=== PATIENT | male | born 1980 | race Caucasian/White ===

== ENCOUNTER 2021-01-20 07:34 | Emergency (ER) | payer BC ==
[2021-01-20 07:40] VITALS: BP 140/82; PULSE 69; RESP 18; TEMP 98.2
[2021-01-20] MEDS ORDERED: KETOROLAC 15 MG/ML 1 ML VIAL IVP STA ×2 (08:10→09:39)
[2021-01-20] MEDS ORDERED: SODIUM CHLORIDE 0.9% 1,000 ML IV STA (08:10)
[2021-01-20] MEDS ORDERED: ONDANSETRON 4 MG/2 ML VIAL IVP STA (08:10)
[2021-01-20 08:31] LABS: Basophils % (A) 0 %; Eosinophils % (A) 1 %; HCT 45.5 % (39.0-53.0); HGB 15.7 gm/dL (13.0-17.5); Lymphocytes % (A) 36 %; MCH 31.1 pg (25.0-35.0); MCHC 34.6 g/dL (31.0-37.0); MCV 90.1 fL (80.0-100.0); Mean Platelet Volume 7.2; Monocytes # (A) 0.2 k/uL (0-1.0); Monocytes % (A) 4 %; Neutrophils # (A) 3.1 k/uL (1.3-7.7); Neutrophils % (A) 57 %; Platelet Count 219 k/uL (150-450); RBC 5.05 m/uL (4.30-5.90); RDW 12.2 % (11.5-15.5); WBC 5.4 k/uL (3.8-10.6)
[2021-01-20 08:41] LABS: Amorphous Sediment,Urine Rare /hpf; Appearance,Urine Cloudy (Clear); Bacteria,Urine Rare /hpf; Bilirubin,Urine Negative (Negative); Blood,Urine Negative (Negative); Color,Urine Yellow; Glucose,Urine (UA) Negative (Negative); Ketones,Urine 3+ (Negative); Leukocyte Esterase,Urine Negative (Negative); Mucus,Urine Rare /hpf; Nitrite,Urine Negative (Negative); Protein,Urine Trace (Negative); RBC,Urine 1 /hpf (0-5); Specific Gravity,Urine 1.023 (1.001-1.035); Urobilinogen,Urine <2.0 mg/dL (<2.0)
[2021-01-20 08:45] LABS: ALT 33 U/L (4-49); AST 30 U/L (17-59); African American GFR (CKD) >90 (>60 ml/min/1.73 sqM); Albumin 4.8 g/dL (3.5-5.0); Alkaline Phosphatase 50 U/L (38-126); Anion Gap 12 mmol/L; Blood Urea Nitrogen 22 mg/dL (9-20); Calcium 9.9 mg/dL (8.4-10.2); Carbon Dioxide 24 mmol/L (22-30); Chloride 106 mmol/L (98-107); Glucose 154 mg/dL (74-99); Lipase 89 U/L (23-300); Non-African American GFR(CKD) >90 (>60 ml/min/1.73 sqM); Potassium 3.7 mmol/L (3.5-5.1); Sodium 142 mmol/L (137-145); Total Bilirubin 1.1 mg/dL (0.2-1.3); Total Protein 7.2 g/dL (6.3-8.2)
--- NOTE | 2021-01-20 09:08 | CT ---
EXAMINATION TYPE: CT abdomen pelvis wo con DATE OF EXAM: 01/20/2021 COMPARISON: None HISTORY: 40-year-old male left flank pain, history of prior stones CT DLP: 432.1 mGycm. Automated exposure control for dose reduction was used. TECHNIQUE: Contiguous axial scanning of the abdomen and pelvis without IV contrast. Coronal and sagit rishi reconstructions performed. FINDINGS: Heart normal size without pericardial effusion. Lung bases clear without pleural effusion. Noncontrast appearance of the liver, gallbladder, adrenal glands, spleen, and pancreas show no gross abnormality by noncontrast CT. A couple punctate 3 mm nonobstructive right renal calculi. There is a 1.2 cm cortical hypodensity pos terior mid to lower pole right kidney which is indeterminate. Renal ultrasound can be performed to en sure that this represents a benign cyst. Mild left-sided hydronephrosis with a 4 mm distal left ureteral calculus. No dilated small bowel, free fluid, or free air. No definite mesenteric or retroperitoneal lymphadeno abelardo. Some circumferential wall thickening along the transverse colon could be due to nondistention. Modera te stool in the right side of the colon. Normal appendix. No pericolonic inflammatory change. Bladder nondistended. Prostate gland mildly enlarged at 4.2 cm wide. No abnormal fluid collection in the pelvis or pelvic lymphadenopathy. Bones: Moderate degenerative change at the hips. Mild of the SI joints. Bilateral L5 hemisacralizatio n. IMPRESSION: 1. A 4 mm distal left ureteral calculus with mild obstructive uropathy. 2. A couple nonobstructing 3 mm right renal calculi. 3. Indeterminate 1.2 cm cortical lesion posterior right kidney. A mildly complicated cyst or small m ass are both possibilities. Nonemergent follow-up renal ultrasound to better characterize recommended . 4. Mild circumferential wall thickening transverse colon could be due to nondistention or nonspecif ic mild colitis. Clinically correlate. 5. Moderate degenerative change of both hips.
--- NOTE | 2021-01-20 09:43 | ED ---
Abdominal Pain HPI - General Chief Complaint: Abdominal Pain Stated Complaint: Abd Pain/Vomiting Time Seen by Provider: 01/20/21 07:52 Source: patient Mode of arrival: ambulatory - History of Present Illness Initial Comments: Patient is a 40-year-old male presenting to emergency Department with complaints of left-sided flank pain with radiation towards "worn that started suddenly this morning. Patient does report some nausea and vomiting as well. He states he does have a history of kidney stones, last one was about 3-4 years ago, this does feel familiar. He denies any fevers or chills, no hematuria that he is aware of. He denies any abdominal surgeries. He denies any chest pain or shortness of breath. He has no further complaints at this time. - Related Data Home Medications Medication Instructions Recorded Confirmed Ibuprofen [Motrin Ib] 200 mg PO Q8H PRN 01/20/21 01/20/21 Previous Rx's Medication Instructions Recorded Ketorolac [Toradol] 10 mg PO Q8HR #10 tab 01/20/21 Ondansetron Odt [Zofran Odt] 4 mg PO Q8HR PRN #10 tab 01/20/21 Tamsulosin [Flomax] 0.4 mg PO DAILY #7 cap 01/20/21 Allergies Allergy/AdvReac Type Severity Reaction Status Date / Time No Known Allergies Allergy Verified 01/20/21 09:34 Review of Systems ROS Statement: Those systems with pertinent positive or pertinent negative responses have been documented in the HPI. ROS Other: All systems not noted in ROS Statement are negative. Past Medical History Past Medical History: No Reported History History of Any Multi-Drug Resistant Organisms: None Reported Past Surgical History: Hernia Repair Past Psychological History: No Psychological Hx Reported Smoking Status: Never smoker Past Alcohol Use History: None Reported Past Drug Use History: None Reported General Exam - General Exam Comments Initial Comments: GENERAL: Patient is well-developed and well-nourished. Patient is nontoxic and in moderate distress, standing pacing the room. HEAD: Atraumatic, normocephalic. EYES: Pupils equal round and reactive to light, extraocular movements intact, sclera anicteric, conjunctiva are normal. Eyelids were unremarkable. ENT: TMs normal, nares patent, oropharynx clear without exudates. Moist mucous membranes. NECK: Normal range of motion, supple without lymphadenopathy or JVD. LUNGS: Unlabored respirations. Breath sounds clear to auscultation bilaterally and equal. No wheezes rales or rhonchi. HEART: Regular rate and rhythm without murmurs, rubs or gallops. ABDOMEN: Soft, mild left flank pain, left side of the abdomen normoactive bowel sounds. No guarding, no rebound. No masses appreciated. : Deferred MUSCULOSKELETAL: Normal extremities with adequate strength and normal range of motion, no pitting or edema. No clubbing or cyanosis. NEUROLOGICAL: Patient is alert and oriented x 3. Motor and sensory are also intact. Cranial nerves II through XII grossly intact. Symmetrical smile. Normal speech, normal gait. PSYCH: Normal mood, normal affect. SKIN: Warm, Dry, normal turgor, no rashes or lesions noted. Course Vital Signs 01/20/21 07:37 Temperature 98.2 F Pulse Rate 69 Respiratory 18 Rate Blood Pressure 140/82 O2 Sat by Pulse 100 Oximetry Medical Decision Making - Medical Decision Making She is a 40-year-old male here with left flank pain, nausea and vomiting started suddenly this morning. Patient is in moderate distress, pacing around the room. His vitals are stable. Lab show normal white count, no other acute findings, urine does show 3+ ketones. CT the abdomen shows a 4 mm distal left ureteral calculus with mild obstructive, there is a few couple nonobstructing right renal calculi, there is a indeterminate small cortical lesion the posterior right kidney, recommended outpatient follow-up. Patient was given fluids, Toradol reports improvement in his symptoms. I discussed these findings with the patient. Patient will follow up with his urologist. I will send him home with some Zofran, Flomax and Toradol. He is in agreement with this plan of care and is stable for discharge. Case discussed Dr. Bourne. - Lab Data Result diagrams: 01/20/21 08:17 01/20/21 08:17 Lab Results 01/20/21 01/20/21 01/20/21 Range/Units 08:17 08:17 08:17 WBC 5.4 (3.8-10.6) k/uL RBC 5.05 (4.30-5.90) m/uL Hgb 15.7 (13.0-17.5) gm/dL Hct 45.5 (39.0-53.0) % MCV 90.1 (80.0-100.0) fL MCH 31.1 (25.0-35.0) pg MCHC 34.6 (31.0-37.0) g/dL RDW 12.2 (11.5-15.5) % Plt Count 219 (150-450) k/uL MPV 7.2 Neutrophils % 57 % Lymphocytes % 36 % Monocytes % 4 % Eosinophils % 1 % Basophils % 0 % Neutrophils # 3.1 (1.3-7.7) k/uL Lymphocytes # 2.0 (1.0-4.8) k/uL Monocytes # 0.2 (0-1.0) k/uL Eosinophils # 0.0 (0-0.7) k/uL Basophils # 0.0 (0-0.2) k/uL Sodium 142 (137-145) mmol/L Potassium 3.7 (3.5-5.1) mmol/L Chloride 106 (98-107) mmol/L Carbon Dioxide 24 (22-30) mmol/L Anion Gap 12 mmol/L BUN 22 H (9-20) mg/dL Creatinine 0.88 (0.66-1.25) mg/dL Est GFR (CKD-EPI)AfAm >90 (>60 ml/min/1.73 sqM) Est GFR (CKD-EPI)NonAf >90 (>60 ml/min/1.73 sqM) Glucose 154 H (74-99) mg/dL Calcium 9.9 (8.4-10.2) mg/dL Total Bilirubin 1.1 (0.2-1.3) mg/dL AST 30 (17-59) U/L ALT 33 (4-49) U/L Alkaline Phosphatase 50 (38-126) U/L Total Protein 7.2 (6.3-8.2) g/dL Albumin 4.8 (3.5-5.0) g/dL Lipase 89 (23-300) U/L Urine Color Yellow Urine Appearance Cloudy (Clear) Urine pH 7.0 (5.0-8.0) Ur Specific [place] 1.023 (1.001-1.035) Urine Protein Trace H (Negative) Urine Glucose (UA) Negative (Negative) Urine Ketones 3+ H (Negative) Urine Blood Negative (Negative) Urine Nitrite Negative (Negative) Urine Bilirubin Negative (Negative) Urine Urobilinogen <2.0 (<2.0) mg/dL Ur Leukocyte Esterase Negative (Negative) Urine RBC 1 (0-5) /hpf Amorphous Sediment Rare H (None) /hpf Urine Bacteria Rare H (None) /hpf Urine Mucus Rare H (None) /hpf Disposition Clinical Impression: Left ureteral calculus Disposition: HOME SELF-CARE Condition: Stable Instructions (If sedation given, give patient instructions): Kidney Stones (ED) Additional Instructions: Please return to the Emergency Department if symptoms worsen or any other concerns. Recommended increasing your fluid intake, take medications as prescribed. Follow up with your urologist. Prescriptions: Tamsulosin [Flomax] 0.4 mg PO DAILY #7 cap Ketorolac [Toradol] 10 mg PO Q8HR #10 tab Ondansetron Odt [Zofran Odt] 4 mg PO Q8HR PRN #10 tab PRN Reason: Nausea Is patient prescribed a controlled substance at d/c from ED?: No Referrals: None,Stated [Primary Care Provider] - 1-2 days Time of Disposition: 09:43
== END 2021-01-20 09:59 | disposition home or self-care (01) ==
LOC: EC 07:34
DX: N13.2 Hydronephrosis with renal and ureteral calculous obstruction (principal); Z79.1 Long term (current) use of non-steroidal anti-inflammatories (NSAID); Z79.899 Other long term (current) drug therapy
CPT/HCPCS: 36415; 74176; 80053; 81001; 83690; 85025; 96361; 96374; 96375; 96376; 99284

== ENCOUNTER 2021-01-22 06:42 | Emergency (ER) | payer BC ==
[2021-01-22 06:51] VITALS: RESP 18; TEMP 97.6
[2021-01-22] MEDS ORDERED: KETOROLAC 15 MG/ML 1 ML VIAL IVP STA (07:00)
[2021-01-22] MEDS ORDERED: SODIUM CHLORIDE 0.9% 1,000 ML IV STA (07:00)
--- NOTE | 2021-01-22 07:07 | ED ---
General Adult HPI - General Chief complaint: Abdominal Pain Stated complaint: Flank pain Time Seen by Provider: 01/22/21 06:52 Source: patient, RN notes reviewed Mode of arrival: ambulatory Limitations: no limitations - History of Present Illness Initial comments: 40-year-old male presents to the emergency room for a chief complaint of left flank pain. Patient reports that he has a kidney stone. States this was diagnosed here on Wednesday. However last night the pain started worsening again. States it actually subsided when he was on his way over to the ER but still wanted to be seen. Patient does have an appointment with urology tomorrow. I did review patient's CAT scan from wednesday and he does have a left 4 mm distal stone. Patient has no other complaints at this time including shortness of breath, chest pain, abdominal pain, nausea or vomiting, headache, or visual changes. - Related Data Home Medications Medication Instructions Recorded Confirmed Ibuprofen [Motrin Ib] 200 mg PO Q8H PRN 01/20/21 01/20/21 Previous Rx's Medication Instructions Recorded Ketorolac [Toradol] 10 mg PO Q8HR #10 tab 01/20/21 Ondansetron Odt [Zofran Odt] 4 mg PO Q8HR PRN #10 tab 01/20/21 Tamsulosin [Flomax] 0.4 mg PO DAILY #7 cap 01/20/21 Allergies Allergy/AdvReac Type Severity Reaction Status Date / Time No Known Allergies Allergy Verified 01/22/21 06:51 Review of Systems ROS Statement: Those systems with pertinent positive or pertinent negative responses have been documented in the HPI. ROS Other: All systems not noted in ROS Statement are negative. Past Medical History Past Medical History: No Reported History History of Any Multi-Drug Resistant Organisms: None Reported Past Surgical History: Hernia Repair Past Psychological History: No Psychological Hx Reported Smoking Status: Never smoker Past Alcohol Use History: None Reported Past Drug Use History: None Reported General Exam Limitations: no limitations General appearance: alert, in no apparent distress Head exam: Present: atraumatic Eye exam: Present: normal appearance, PERRL, EOMI. Absent: scleral icterus, conjunctival injection, periorbital swelling ENT exam: Present: normal exam, mucous membranes moist Neck exam: Present: normal inspection. Absent: tenderness, meningismus, lymphadenopathy Respiratory exam: Present: normal lung sounds bilaterally. Absent: respiratory distress, wheezes, rales, rhonchi, stridor Cardiovascular Exam: Present: regular rate, normal rhythm, normal heart sounds. Absent: systolic murmur, diastolic murmur, rubs, gallop, clicks GI/Abdominal exam: Present: soft, normal bowel sounds. Absent: distended, tenderness, guarding, rebound, rigid Back exam: Present: CVA tenderness (L). Absent: CVA tenderness (R) Course Vital Signs 01/22/21 06:48 Temperature 97.6 F Pulse Rate 73 Respiratory 18 Rate Blood Pressure 117/79 O2 Sat by Pulse 97 Oximetry Medical Decision Making - Medical Decision Making Vitals are stable. Patient has minimal left flank tenderness. On presentation to the emergency room patient is now rating his pain at a 0 out of 10 and is refusing pain medications. CBC CMP unremarkable. Urinalysis negative. X-ray was able to identify the 3 mm distal left ureteral stone present on CAT scan in the distal left ureter. Remy travis has an appointment with urology tomorrow and will be discharged home. He'll return here for any worsening symptoms. - Lab Data Result diagrams: 01/22/21 07:22 01/22/21 07:22 Lab Results 01/22/21 01/22/21 01/22/21 Range/Units 07:22 07:22 07:22 WBC 5.2 (3.8-10.6) k/uL RBC 4.76 (4.30-5.90) m/uL Hgb 15.0 (13.0-17.5) gm/dL Hct 43.0 (39.0-53.0) % MCV 90.4 (80.0-100.0) fL MCH 31.5 (25.0-35.0) pg MCHC 34.8 (31.0-37.0) g/dL RDW 12.1 (11.5-15.5) % Plt Count 197 (150-450) k/uL MPV 7.0 Neutrophils % 68 % Lymphocytes % 25 % Monocytes % 5 % Eosinophils % 1 % Basophils % 0 % Neutrophils # 3.6 (1.3-7.7) k/uL Lymphocytes # 1.3 (1.0-4.8) k/uL Monocytes # 0.2 (0-1.0) k/uL Eosinophils # 0.1 (0-0.7) k/uL Basophils # 0.0 (0-0.2) k/uL Sodium 141 (137-145) mmol/L Potassium 3.9 (3.5-5.1) mmol/L Chloride 107 (98-107) mmol/L Carbon Dioxide 26 (22-30) mmol/L Anion Gap 8 mmol/L BUN 10 (9-20) mg/dL Creatinine 0.68 (0.66-1.25) mg/dL Est GFR (CKD-EPI)AfAm >90 (>60 ml/min/1.73 sqM) Est GFR (CKD-EPI)NonAf >90 (>60 ml/min/1.73 sqM) Glucose 104 H (74-99) mg/dL Calcium 9.3 (8.4-10.2) mg/dL Total Bilirubin 1.2 (0.2-1.3) mg/dL AST 28 (17-59) U/L ALT 28 (4-49) U/L Alkaline Phosphatase 43 (38-126) U/L Total Protein 6.8 (6.3-8.2) g/dL Albumin 4.4 (3.5-5.0) g/dL Amylase 44 (30-110) U/L Lipase 76 (23-300) U/L Urine Color Light Yellow Urine Appearance Clear (Clear) Urine pH 6.0 (5.0-8.0) Ur Specific [place] 1.003 (1.001-1.035) Urine Protein Negative (Negative) Urine Glucose (UA) Negative (Negative) Urine Ketones Negative (Negative) Urine Blood Negative (Negative) Urine Nitrite Negative (Negative) Urine Bilirubin Negative (Negative) Urine Urobilinogen <2.0 (<2.0) mg/dL Ur Leukocyte Esterase Negative (Negative) Disposition Clinical Impression: Left ureteral calculus Disposition: HOME SELF-CARE Condition: Good Instructions (If sedation given, give patient instructions): Kidney Stones (ED) Additional Instructions: Please continue your medications at home as directed. Please follow-up with urology at your scheduled appointment tomorrow. Return to the emergency room f or worsening symptoms. Is patient prescribed a controlled substance at d/c from ED?: No Referrals: Nonstaff,Physician [Primary Care Provider] - 1-2 days Time of Disposition: 08:27
[2021-01-22 07:32] LABS: Basophils % (A) 0 %; Eosinophils # (A) 0.1 k/uL (0-0.7); Eosinophils % (A) 1 %; Lymphocytes # (A) 1.3 k/uL (1.0-4.8); Lymphocytes % (A) 25 %; MCH 31.5 pg (25.0-35.0); MCHC 34.8 g/dL (31.0-37.0); MCV 90.4 fL (80.0-100.0); Monocytes # (A) 0.2 k/uL (0-1.0); Monocytes % (A) 5 %; Neutrophils # (A) 3.6 k/uL (1.3-7.7); Neutrophils % (A) 68 %; Platelet Count 197 k/uL (150-450); RBC 4.76 m/uL (4.30-5.90); RDW 12.1 % (11.5-15.5); WBC 5.2 k/uL (3.8-10.6)
[2021-01-22 07:34] LABS: Appearance,Urine Clear (Clear); Bilirubin,Urine Negative (Negative); Blood,Urine Negative (Negative); Color,Urine Light Yellow; Glucose,Urine (UA) Negative (Negative); Ketones,Urine Negative (Negative); Leukocyte Esterase,Urine Negative (Negative); Nitrite,Urine Negative (Negative); Protein,Urine Negative (Negative); Specific Gravity,Urine 1.003 (1.001-1.035); Urobilinogen,Urine <2.0 mg/dL (<2.0)
[2021-01-22 07:41] LABS: ALT 28 U/L (4-49); AST 28 U/L (17-59); African American GFR (CKD) >90 (>60 ml/min/1.73 sqM); Albumin 4.4 g/dL (3.5-5.0); Alkaline Phosphatase 43 U/L (38-126); Amylase 44 U/L (30-110); Anion Gap 8 mmol/L; Blood Urea Nitrogen 10 mg/dL (9-20); Calcium 9.3 mg/dL (8.4-10.2); Carbon Dioxide 26 mmol/L (22-30); Chloride 107 mmol/L (98-107); Glucose 104 mg/dL (74-99); Lipase 76 U/L (23-300); Non-African American GFR(CKD) >90 (>60 ml/min/1.73 sqM); Potassium 3.9 mmol/L (3.5-5.1); Sodium 141 mmol/L (137-145); Total Bilirubin 1.2 mg/dL (0.2-1.3); Total Protein 6.8 g/dL (6.3-8.2)
--- NOTE | 2021-01-22 08:11 | XR ---
EXAMINATION TYPE: XR KUB DATE OF EXAM: 01/22/2021 COMPARISON: CT 01/20/2021 INDICATION: Abdomen pain left flank pain TECHNIQUE: Single view abdomen upright view FINDINGS: There is a nonspecific bowel gas pattern. There is within the colon. No mass effect is evident. No iraheta spicious air-fluid levels are evident. No free air is present. Psoas margins are normal. No organomegaly is present. No suspicious renal calcifications are identified. No distal ureteral stones are identified on the ri ght. Faint calcification is in the left hemipelvis could be a distal left ureteral stone. This measur es 0.3 cm [address] the [address] exam. IMPRESSION: 1. 0.3 cm calcification distal left ureteral stone present on CT exam.
[2021-01-22 08:28] VITALS: BP 118/74; PULSE 68
[2021-01-22] MEDS ORDERED: ACET/COD 300 MG/30 MG STARTER PACK 6 TAB BTL PO STA (08:30)
== END 2021-01-22 08:53 | disposition home or self-care (01) ==
LOC: EC 06:42
DX: N20.1 Calculus of ureter (principal); Z79.1 Long term (current) use of non-steroidal anti-inflammatories (NSAID)
CPT/HCPCS: 36415; 74018; 80053; 81003; 82150; 83690; 85025; 96360; 99284